=== PATIENT | male | born 1930 | race Caucasian/White ===

== ENCOUNTER 2018-02-21 07:52 | Inpatient (IN) ==
[2018-02-21] MEDS ORDERED: SODIUM CHLORIDE 0.9% 1,000 ML IV STA ×2 (08:24→09:45)
[2018-02-21 08:35] LABS: Basophils % 0.4 % (0.0-0.8); Eosinophils % 0.1 % (0.00-10.9); Hemoglobin 13.9 GM/DL (14.0-18.0); Immature Granulocytes % 0.5 %; Immature Granulocytes Absolute 0.04 #; Lymphocytes # 1.5 10*3/uL (1.4-4.0); Lymphocytes % 19.3 % (21.2-54.2); Mean Corpuscular HGB Conc 33.1 GM/DL (32-36); Mean Corpuscular Hemoglobin 30 PG (27-34); Mean Corpuscular Volume 90.5 FL (87-102); Mean Platelet Volume 10.5 FL (9.6-12.0); Monocytes # 0.6 10*3/uL (0.11-0.8); Monocytes % 6.9 % (1.7-12.7); Neutrophils # 5.8 10*3/uL (1.4-7.4); Neutrophils % 72.8 % (38.7-73.9); Platelet Count 304 T/CUMM (130-400); Red Blood Count 4.64 MC/CUMM (3.8-5.5); Red Cell Distribution Width 13.3 % (9.3-17.3)
[2018-02-21 08:56] LABS: Calcium 10.1 MG/DL (8.5-10.1); Osmolality,Calculated 275.8 MOS/KG (273-304); Potassium 4.3 MMOL/L (3.5-5.1)
[2018-02-21] MEDS ORDERED: DILTIAZEM 25 MG/5 ML VIAL IV ONE ×2 (10:17→10:30)
[2018-02-21] MEDS ORDERED: DILTIAZEM 50 MG/10 ML VIAL IV ONE (10:20)
[2018-02-21] MEDS ORDERED: dilTIAZem Drip 125 MG/125 ML PREMIX IV SCH (10:30)
[2018-02-21] MEDS: DILTIAZEM INJ 100 MG in SODIUM CHLORIDE 0.9% 100 ML IV SCH ×2 (10:40→23:07)
[2018-02-21] MEDS ORDERED: METOPROLOL TARTRATE 5 MG/5 ML VIAL IV STA (11:00)
[2018-02-21] MEDS ORDERED: METOPROLOL TARTRATE 5 MG/5 ML VIAL IV ONE ×2 (11:02→13:37)
[2018-02-21] MEDS ORDERED: MORPHINE 4 MG/1 ML VIAL IV PRN (11:37)
[2018-02-21] MEDS ORDERED: ONDANSETRON 4 MG/2 ML VIAL IV PRN (11:37)
[2018-02-21] MEDS ORDERED: ACETAMINOPHEN 325 MG TABLET PO PRN ×2 (11:37→16:30)
[2018-02-21] MEDS ORDERED: METOPROLOL TARTRATE 5 MG/5 ML VIAL IV PRN (11:42)
[2018-02-21] MEDS ORDERED: SCOPOLAMINE 1.5 MG PATCH TRANSDERM SCH (13:00)
[2018-02-21] MEDS ORDERED: INFLUENZA VIRUS VACCINE 0.5 ML SYRINGE IM ONE (13:14)
[2018-02-21] MEDS: dilTIAZem Drip 125 MG/125 ML PREMIX IV SCH ×2 (13:39→15:47)
[2018-02-21] MEDS: SODIUM CHLORIDE 0.9% 1,000 ML IV SCH ×2 (13:40→23:06)
[2018-02-21] MEDS: ENOXAPARIN 40 MG/0.4 ML SYRINGE SUBCUT SCH (14:05)
[2018-02-21] MEDS ORDERED: SOTALOL 80 MG TABLET PO SCH (16:24)
[2018-02-21] MEDS: AZITHROMYCIN INJ 500 MG in SODIUM CHLORIDE 0.9% 250 ML IV SCH (17:08)
[2018-02-21] MEDS ORDERED: AMIODARONE INJ 150 MG in DEXTROSE 5% 100 ML IV ONE (17:11)
[2018-02-21] MEDS ORDERED: AMIODARONE INJ 450 MG in DEXTROSE 5% 241 ML IV SCH (17:30)
[2018-02-21] MEDS: AMPICILLIN/SULBACTAM 1,500 MG in SODIUM CHLORIDE 0.9% 100 ML IV SCH (20:39)
[2018-02-22] MEDS: AMIODARONE INJ 450 MG in DEXTROSE 5% 241 ML IV SCH ×2 (03:29→16:50)
[2018-02-22] MEDS: SODIUM CHLORIDE 0.9% 1,000 ML IV SCH ×3 (03:55→21:08)
[2018-02-22] MEDS: AMPICILLIN/SULBACTAM 1,500 MG in SODIUM CHLORIDE 0.9% 100 ML IV SCH ×2 (05:55→14:08)
[2018-02-22 06:15] LABS: Basophils % 0.4 % (0.0-0.8); Eosinophils % 0.1 % (0.00-10.9); Hematocrit 33.8 VOL% (42.0-52.0); Hemoglobin 11.2 GM/DL (14.0-18.0); Immature Granulocytes % 0.4 %; Immature Granulocytes Absolute 0.03 #; Lymphocytes # 1.1 10*3/uL (1.4-4.0); Lymphocytes % 15.7 % (21.2-54.2); Mean Corpuscular HGB Conc 33.1 GM/DL (32-36); Mean Corpuscular Hemoglobin 30 PG (27-34); Mean Corpuscular Volume 91.6 FL (87-102); Mean Platelet Volume 11.2 FL (9.6-12.0); Monocytes # 0.6 10*3/uL (0.11-0.8); Monocytes % 8.1 % (1.7-12.7); Neutrophils # 5.2 10*3/uL (1.4-7.4); Neutrophils % 75.3 % (38.7-73.9); Platelet Count 231 T/CUMM (130-400); Red Blood Count 3.69 MC/CUMM (3.8-5.5); Red Cell Distribution Width 13.3 % (9.3-17.3)
[2018-02-22 06:37] LABS: Calcium 8.8 MG/DL (8.5-10.1); Osmolality,Calculated 283.1 MOS/KG (273-304); Potassium 3.4 MMOL/L (3.5-5.1); Thyroid Stimulating Hormone 0.358 uIU/ml (0.358-3.74)
[2018-02-22] MEDS ORDERED: MAGNESIUM SULF RIDER 4 GM in PREMIX 1 EACH IV PRN (07:52)
[2018-02-22] MEDS ORDERED: POTASSIUM CHLORIDE 20 MEQ/15 ML UDCUP PO ONE (07:52)
[2018-02-22] MEDS: ALBUTEROL/IPRATROPIUM 3 ML NEB RESP TX SCH ×2 (13:23→20:04)
[2018-02-22] MEDS: IPRATROPIUM 0.06% NASAL SPRAY 15 ML BOTTLE BOTH NARES SCH ×3 (13:25→21:07)
[2018-02-22] MEDS: ENOXAPARIN 40 MG/0.4 ML SYRINGE SUBCUT SCH (13:30)
[2018-02-22] MEDS: DILTIAZEM INJ 100 MG in SODIUM CHLORIDE 0.9% 100 ML IV SCH (14:11)
[2018-02-22] MEDS: dilTIAZem Drip 125 MG/125 ML PREMIX IV SCH ×2 (14:14→21:53)
[2018-02-22] MEDS: MAGNESIUM SULF RIDER 2 GM in PREMIX 1 EACH IV PRN (15:24)
[2018-02-22] MEDS: AZITHROMYCIN INJ 500 MG in SODIUM CHLORIDE 0.9% 250 ML IV SCH (16:48)
[2018-02-22] MEDS: POTASSIUM CHLORIDE RIDER 10 MEQ in PREMIX 1 EACH IV SCH ×4 (20:59→21:59)
[2018-02-23] MEDS: AMPICILLIN/SULBACTAM 1,500 MG in SODIUM CHLORIDE 0.9% 100 ML IV SCH ×3 (01:16→21:00)
[2018-02-23] MEDS: SODIUM CHLORIDE 0.9% 1,000 ML IV SCH ×3 (04:12→21:10)
[2018-02-23] MEDS: ALBUTEROL/IPRATROPIUM 3 ML NEB RESP TX SCH ×4 (04:46→19:01)
[2018-02-23 05:29] LABS: Basophils % 0.6 % (0.0-0.8); Eosinophils % 0.2 % (0.00-10.9); Hematocrit 34.7 VOL% (42.0-52.0); Immature Granulocytes % 0.4 %; Immature Granulocytes Absolute 0.02 #; Lymphocytes # 0.8 10*3/uL (1.4-4.0); Lymphocytes % 15.7 % (21.2-54.2); Mean Corpuscular HGB Conc 31.7 GM/DL (32-36); Mean Corpuscular Hemoglobin 29 PG (27-34); Mean Corpuscular Volume 91.6 FL (87-102); Mean Platelet Volume 11.4 FL (9.6-12.0); Monocytes # 0.4 10*3/uL (0.11-0.8); Monocytes % 8.2 % (1.7-12.7); Neutrophils # 3.8 10*3/uL (1.4-7.4); Neutrophils % 74.9 % (38.7-73.9); Platelet Count 197 T/CUMM (130-400); Red Blood Count 3.79 MC/CUMM (3.8-5.5); Red Cell Distribution Width 13.4 % (9.3-17.3); White Blood Count 5.1 T/CUMM (4-12)
[2018-02-23 06:05] LABS: Calcium 8.6 MG/DL (8.5-10.1); Osmolality,Calculated 284.8 MOS/KG (273-304); Potassium 3.4 MMOL/L (3.5-5.1)
[2018-02-23] MEDS ORDERED: MIDAZOLAM 10 MG/2 ML VIAL ONE (08:26)
[2018-02-23] MEDS: AMIODARONE INJ 450 MG in DEXTROSE 5% 241 ML IV SCH (09:36)
[2018-02-23] MEDS: IPRATROPIUM 0.06% NASAL SPRAY 15 ML BOTTLE BOTH NARES SCH ×4 (10:51→21:00)
[2018-02-23] MEDS: ENOXAPARIN 40 MG/0.4 ML SYRINGE SUBCUT SCH (12:32)
[2018-02-23] MEDS: AZITHROMYCIN INJ 500 MG in SODIUM CHLORIDE 0.9% 250 ML IV SCH (17:07)
[2018-02-24] MEDS: ALBUTEROL/IPRATROPIUM 3 ML NEB RESP TX SCH ×4 (00:31→19:02)
[2018-02-24] MEDS: AMPICILLIN/SULBACTAM 1,500 MG in SODIUM CHLORIDE 0.9% 100 ML IV SCH ×3 (02:06→17:58)
[2018-02-24] MEDS: AMIODARONE INJ 450 MG in DEXTROSE 5% 241 ML IV SCH ×3 (02:56→20:30)
[2018-02-24] MEDS: SODIUM CHLORIDE 0.9% 1,000 ML IV SCH ×3 (05:28→21:29)
[2018-02-24] MEDS ORDERED: ETOMIDATE 20 MG/10 ML VIAL IV ONE (10:00)
[2018-02-24] MEDS ORDERED: LIDOCAINE 100 MG/5 ML SYRINGE ONE (10:00)
[2018-02-24] MEDS: LACTATED RINGERS 1,000 ML IV SCH (12:11)
[2018-02-24] MEDS: IPRATROPIUM 0.06% NASAL SPRAY 15 ML BOTTLE BOTH NARES SCH ×4 (12:12→21:29)
[2018-02-24] MEDS: ENOXAPARIN 40 MG/0.4 ML SYRINGE SUBCUT SCH (12:57)
[2018-02-25] MEDS: ALBUTEROL/IPRATROPIUM 3 ML NEB RESP TX SCH ×4 (01:55→19:17)
[2018-02-25] MEDS: AMPICILLIN/SULBACTAM 1,500 MG in SODIUM CHLORIDE 0.9% 100 ML IV SCH ×3 (02:04→17:02)
[2018-02-25 05:53] LABS: Basophils % 0.6 % (0.0-0.8); Eosinophils % 0.4 % (0.00-10.9); Hemoglobin 10.4 GM/DL (14.0-18.0); Immature Granulocytes % 0.4 %; Immature Granulocytes Absolute 0.02 #; Lymphocytes # 0.5 10*3/uL (1.4-4.0); Lymphocytes % 10.1 % (21.2-54.2); Mean Corpuscular HGB Conc 31.5 GM/DL (32-36); Mean Corpuscular Hemoglobin 29 PG (27-34); Mean Corpuscular Volume 91.9 FL (87-102); Monocytes # 0.4 10*3/uL (0.11-0.8); Monocytes % 7.1 % (1.7-12.7); Neutrophils # 4.4 10*3/uL (1.4-7.4); Neutrophils % 81.4 % (38.7-73.9); Platelet Count 205 T/CUMM (130-400); Red Blood Count 3.59 MC/CUMM (3.8-5.5); Red Cell Distribution Width 13.3 % (9.3-17.3); White Blood Count 5.4 T/CUMM (4-12)
[2018-02-25 06:21] LABS: Calcium 8.4 MG/DL (8.5-10.1); Osmolality,Calculated 287.6 MOS/KG (273-304); Potassium 3.1 MMOL/L (3.5-5.1)
[2018-02-25] MEDS: SODIUM CHLORIDE 0.9% 1,000 ML IV SCH (06:21)
[2018-02-25 06:24] LABS: Prealbumin 8.9 MG/DL (20-40)
[2018-02-25] MEDS: POTASSIUM CHLORIDE RIDER 10 MEQ in PREMIX 1 EACH IV PRN ×2 (06:39→08:22)
[2018-02-25] MEDS ORDERED: POTASSIUM CHLORIDE 20 MEQ/15 ML UDCUP PER TUBE ONE (09:06)
[2018-02-25] MEDS: LACTATED RINGERS 1,000 ML IV SCH (10:45)
[2018-02-25] MEDS: IPRATROPIUM 0.06% NASAL SPRAY 15 ML BOTTLE BOTH NARES SCH ×4 (10:45→22:16)
[2018-02-25] MEDS: AMIODARONE INJ 450 MG in DEXTROSE 5% 241 ML IV SCH ×2 (11:42→18:28)
[2018-02-25] MEDS ORDERED: AMIODARONE 200 MG TABLET PO SCH (12:00)
[2018-02-25] MEDS: ENOXAPARIN 40 MG/0.4 ML SYRINGE SUBCUT SCH (12:53)
[2018-02-25] MEDS ORDERED: ACETAMINOPHEN 325 MG TABLET PEG PRN ×2 (14:30)
[2018-02-25] MEDS: PIPERACILLIN/TAZOBACTAM 3,375 MG in SODIUM CHLORIDE 0.9% 100 ML IV SCH (18:07)
[2018-02-25] MEDS ORDERED: POTASSIUM PHOSPHATE 30 MMOL in SODIUM CHLORIDE 0.9% 250 ML IV ONE (19:00)
[2018-02-25] MEDS: AMIODARONE 200 MG TABLET PEG SCH (22:16)
[2018-02-26] MEDS: ALBUTEROL/IPRATROPIUM 3 ML NEB RESP TX SCH ×4 (00:37→19:46)
[2018-02-26] MEDS: PIPERACILLIN/TAZOBACTAM 3,375 MG in SODIUM CHLORIDE 0.9% 100 ML IV SCH ×3 (02:31→18:02)
[2018-02-26] MEDS: SODIUM CHLORIDE 0.9% 1,000 ML IV SCH (04:39)
[2018-02-26 05:48] LABS: Basophils % 0.3 % (0.0-0.8); Eosinophils % 0.5 % (0.00-10.9); Hematocrit 34.9 VOL% (42.0-52.0); Hemoglobin 11.1 GM/DL (14.0-18.0); Immature Granulocytes % 0.7 %; Immature Granulocytes Absolute 0.05 #; Mean Corpuscular HGB Conc 31.8 GM/DL (32-36); Mean Corpuscular Hemoglobin 29 PG (27-34); Mean Corpuscular Volume 91.4 FL (87-102); Mean Platelet Volume 11.1 FL (9.6-12.0); Monocytes # 0.4 10*3/uL (0.11-0.8); Monocytes % 5.7 % (1.7-12.7); Neutrophils # 5.8 10*3/uL (1.4-7.4); Neutrophils % 79.8 % (38.7-73.9); Platelet Count 221 T/CUMM (130-400); Red Blood Count 3.82 MC/CUMM (3.8-5.5); Red Cell Distribution Width 13.5 % (9.3-17.3); White Blood Count 7.3 T/CUMM (4-12)
[2018-02-26 05:55] LABS: PT Patient Result 11.2 SECS
[2018-02-26 06:04] LABS: Calcium 8.8 MG/DL (8.5-10.1); Osmolality,Calculated 285.8 MOS/KG (273-304); Potassium 3.9 MMOL/L (3.5-5.1)
[2018-02-26] MEDS: AMIODARONE 200 MG TABLET PEG SCH ×2 (08:26→22:15)
[2018-02-26] MEDS: IPRATROPIUM 0.06% NASAL SPRAY 15 ML BOTTLE BOTH NARES SCH ×4 (08:35→22:16)
[2018-02-26] MEDS: LACTATED RINGERS 1,000 ML IV SCH (09:27)
[2018-02-26] MEDS ORDERED: LIDOCAINE 100 MG/5 ML SYRINGE ONE (10:53)
[2018-02-26] MEDS ORDERED: PROPOFOL 200 MG/20 ML VIAL IV ONE (10:53)
[2018-02-26] MEDS ORDERED: SODIUM CHLORIDE 0.9% 250 ML BAG IV ONE (10:53)
[2018-02-26] MEDS ORDERED: ETOMIDATE 20 MG/10 ML VIAL IV ONE (10:53)
[2018-02-26] MEDS: METOPROLOL TARTRATE 25 MG TABLET PO SCH ×2 (14:17→22:15)
[2018-02-27] MEDS: ALBUTEROL/IPRATROPIUM 3 ML NEB RESP TX SCH ×4 (00:14→19:56)
[2018-02-27] MEDS: PIPERACILLIN/TAZOBACTAM 3,375 MG in SODIUM CHLORIDE 0.9% 100 ML IV SCH ×3 (02:30→17:40)
[2018-02-27 04:43] LABS: Basophils % 0.3 % (0.0-0.8); Eosinophils # 0.1 10*3/uL (0.0-0.87); Eosinophils % 0.8 % (0.00-10.9); Hematocrit 31.4 VOL% (42.0-52.0); Hemoglobin 9.9 GM/DL (14.0-18.0); Immature Granulocytes % 0.3 %; Immature Granulocytes Absolute 0.02 #; Lymphocytes # 0.8 10*3/uL (1.4-4.0); Lymphocytes % 13.1 % (21.2-54.2); Mean Corpuscular HGB Conc 31.5 GM/DL (32-36); Mean Corpuscular Hemoglobin 29 PG (27-34); Mean Corpuscular Volume 92.1 FL (87-102); Mean Platelet Volume 11.2 FL (9.6-12.0); Monocytes # 0.4 10*3/uL (0.11-0.8); Neutrophils % 79.5 % (38.7-73.9); Platelet Count 195 T/CUMM (130-400); Red Blood Count 3.41 MC/CUMM (3.8-5.5); Red Cell Distribution Width 13.5 % (9.3-17.3); White Blood Count 6.3 T/CUMM (4-12)
[2018-02-27 05:06] LABS: Calcium 8.5 MG/DL (8.5-10.1); Osmolality,Calculated 285.7 MOS/KG (273-304); Potassium 3.6 MMOL/L (3.5-5.1)
[2018-02-27] MEDS: MAGNESIUM SULF RIDER 2 GM in PREMIX 1 EACH IV PRN (07:54)
[2018-02-27] MEDS: METOPROLOL TARTRATE 25 MG TABLET PO SCH ×2 (07:59→20:58)
[2018-02-27] MEDS: AMIODARONE 200 MG TABLET PEG SCH ×2 (07:59→20:59)
[2018-02-27] MEDS: IPRATROPIUM 0.06% NASAL SPRAY 15 ML BOTTLE BOTH NARES SCH ×4 (08:10→20:59)
[2018-02-27] MEDS: LACTATED RINGERS 1,000 ML IV SCH (08:38)
[2018-02-27] MEDS ORDERED: ASPIRIN EC 81 MG TABLET PO SCH (09:00)
[2018-02-27] MEDS: SUCRALFATE 1 GM/10 ML UDCUP PO SCH ×3 (12:05→20:59)
[2018-02-28] MEDS: ALBUTEROL/IPRATROPIUM 3 ML NEB RESP TX SCH ×2 (00:24→07:14)
[2018-02-28] MEDS: PIPERACILLIN/TAZOBACTAM 3,375 MG in SODIUM CHLORIDE 0.9% 100 ML IV SCH ×2 (02:15→08:31)
[2018-02-28 04:57] LABS: Basophils % 0.6 % (0.0-0.8); Eosinophils # 0.1 10*3/uL (0.0-0.87); Eosinophils % 1.6 % (0.00-10.9); Hematocrit 32.9 VOL% (42.0-52.0); Hemoglobin 10.5 GM/DL (14.0-18.0); Immature Granulocytes % 0.3 %; Immature Granulocytes Absolute 0.02 #; Lymphocytes # 0.8 10*3/uL (1.4-4.0); Lymphocytes % 13.2 % (21.2-54.2); Mean Corpuscular HGB Conc 31.9 GM/DL (32-36); Mean Corpuscular Hemoglobin 29 PG (27-34); Mean Corpuscular Volume 91.9 FL (87-102); Mean Platelet Volume 10.9 FL (9.6-12.0); Monocytes # 0.3 10*3/uL (0.11-0.8); Monocytes % 5.4 % (1.7-12.7); Neutrophils # 4.9 10*3/uL (1.4-7.4); Neutrophils % 78.9 % (38.7-73.9); Platelet Count 230 T/CUMM (130-400); Red Blood Count 3.58 MC/CUMM (3.8-5.5); Red Cell Distribution Width 13.4 % (9.3-17.3); White Blood Count 6.3 T/CUMM (4-12)
[2018-02-28 05:17] LABS: Calcium 8.6 MG/DL (8.5-10.1); Osmolality,Calculated 286.8 MOS/KG (273-304); Potassium 3.6 MMOL/L (3.5-5.1)
[2018-02-28] MEDS: SUCRALFATE 1 GM/10 ML UDCUP PO SCH (06:15)
[2018-02-28 07:55] VITALS: BP 122/67
[2018-02-28] MEDS: AMIODARONE 200 MG TABLET PEG SCH (08:14)
[2018-02-28] MEDS: METOPROLOL TARTRATE 25 MG TABLET PO SCH (08:14)
[2018-02-28] MEDS ORDERED: ASPIRIN CHEW 81 MG TABLET PO SCH (09:00)
== END 2018-02-28 13:19 | disposition swing bed (61) | DRG 308 ==
LOC: N.ED 07:52 → SUATTDRO 11:38 → N.EDINP 11:38 → N.TELEN 12:20
PROVIDERS: ADMIT Internal Medicine Infectious Disease; ATTEND Internal Medicine
PROC: EGDWPEG (ICD-10-PCS; 2018-02-26 09:05)